=== PATIENT | male | born 1935 | race Caucasian/White ===

== ENCOUNTER 2017-11-11 12:16 | Inpatient (IN) | payer OTHER, MEDICARE ==
[~2017-11-11] VITALS: Ht 177.8 cm; Wt 86.7 kg
[~2017-11-11 12:16] MED LIST: ACET325T14 PO; ACET650S12 PR; ALBU1.25 NEB; AMIO200T42 PO; ASPI-496 PO; ATOR10TA9 PO; AZIT500T5 PO; BISA10SU2 PR; CARV6.2512 PO; CEFD300C37 PO; CLOP75TA PO; CYCL-259 PO; DIAZ5TAB4 PO; DOCU100C33 PO; EZET10TA18 PO; FURO80TA77 PO; HYDR12.53 PO; IMAT100T PO; INSU100C5 SQ-INSULIN; LACT10SO28 PO; LISI-420 PO; LISI5TAB7 PO; LISINOPRIL PO; METF500T9 PO; METO50TA82 PO; OMEG1CAP6 PO; ONDA4TAB10 PO; OXYC-307 PO; OXYC1TAB7 PO; OXYC5CAP2 PO; PANT40TA3 PO; POLY17PO5 PO; POTA20TA89 PO; PT WILL BRING LIST; SULF-169 PO; WARF2TAB99 PO; ZOLP10TA PO
[2017-11-11] MEDS ORDERED: SODIUM CHLORIDE FLUSH 10ML SYR IVF ONE (12:30)
[2017-11-11 12:54] LABS: MEAN CORPUSCULAR HEMOGLOBIN 29.7 pg (27.5-34.5); MEAN CORPUSCULAR HGB CONC 32.9 g/dL (33.2-36.2); MEAN CORPUSCULAR VOLUME 90.2 fL (81-97); MEAN PLATELET VOLUME 8.4 fL (7.4-10.4); PLATELET COUNT 394 x10^3/uL (130-400); RED BLOOD COUNT 5.55 x10^6/uL (4.38-5.82); RED CELL DISTRIBUTION WIDTH 15.2 % (9.4-14.8)
[2017-11-11 13:03] LABS: INTERNATIONAL NORMALIZED RATIO 1.09 (0.93-1.1); PROTHROMBIN TIME 11.2 Seconds (9.6-11.5)
[2017-11-11 13:07] LABS: ALANINE AMINOTRANSFERASE 32 U/L (12-78); ANION GAP 9 mmol/L (5-15); CHLORIDE 107 mmol/L (98-107); CREATININE 1.16 mg/dL (0.7-1.3)
[2017-11-11 13:10] LABS: MD YES
[2017-11-11 13:11] LABS: ALKALINE PHOSPHATASE 103 U/L (45-117); BILIRUBIN,TOTAL 0.8 mg/dL (0.2-1.0); TOTAL PROTEIN 7.5 g/dL (6.4-8.2); TROPONIN I 0.097 ng/mL (0.000-0.045)
[2017-11-11 13:12] LABS: LYMPH#(MANUAL) 2.63 x10^3/uL (1-3.4); LYMPHS% (MANUAL) 15 % (22-44); REACTIVE LYMPHS # (MANUAL) 0.35 x10^3/uL (0-0); REACTIVE LYMPHS % (MANUAL) 2 % (0-0); SEG#(MANUAL) 12.95 x10^3/uL (1.8-6.8); SEGS% (MANUAL) 74 % (42-75)
[2017-11-11 13:13] LABS: BASOS#(MANUAL) 0.18 x10^3/uL (0-0.1); BASOS% (MANUAL) 1 % (0-1); MONOS% (MANUAL) 8 % (2-9)
[2017-11-11 13:14] LABS: <PLATELET ESTIMATE> ADEQUATE; ANISOCYTOSIS 1+; LARGE PLATELETS 1+
[2017-11-11] MEDS ORDERED: SODIUM CHLORIDE FLUSH 10ML SYR IVF PRN (14:30)
[2017-11-11] MEDS ORDERED: OXYC10TA47 PO (14:44)
[2017-11-11 16:00] VITALS: BP 161/83
[2017-11-11] MEDS ORDERED: LABETALOL 5MG/ML, 20ML IVPush ONE (16:30)
[2017-11-11] MEDS ORDERED: ACETAMINOPHEN 325 MG TABLET PO PRN (17:00)
[2017-11-11] MEDS ORDERED: LABETALOL 5MG/ML, 20ML IVPush PRN (17:00)
[2017-11-11 18:00] LABS: FREE T4 (FREE THYROXINE) 1.25 ng/dL (0.76-1.46); TROPONIN I 0.095 ng/mL (0.000-0.045)
[2017-11-11] MEDS ORDERED: POLYETHYLENE GLYCOL 17 GM PACKET PO PRN (18:00)
[2017-11-11 18:03] VITALS: BP 144/68
[2017-11-11 18:06] LABS: THYROID STIMULATING HORMONE 0.103 mIU/L (0.358-3.740)
[2017-11-11] MEDS: SODIUM CHLORIDE 0.9% 1,000 ML IV SCH (18:10)
[2017-11-11 18:41] VITALS: BP 158/67
[2017-11-11] MEDS: METOPROLOL TARTRATE 50 MG TABLET PO SCH (19:12)
[2017-11-11 20:35] LABS: MICROSCOPIC AUTO
[2017-11-11 20:37] LABS: CULTURE INDICATED? NO
[2017-11-11] MEDS: ATORVASTATIN 10 MG TABLET PO SCH (21:31)
[2017-11-11 23:28] LABS: TROPONIN I 0.093 ng/mL (0.000-0.045)
[2017-11-12 00:58] VITALS: BP 151/85
[2017-11-12] MEDS: SUCRALFATE 1 GM TABLET PO PRN ×2 (01:05→14:11)
[2017-11-12] MEDS ORDERED: OXYcodone IR 5MG TABLET ONE (04:43)
[2017-11-12] MEDS: OXYcodone IR 5MG TABLET PO PRN ×3 (04:45→20:11)
[2017-11-12] MEDS: SODIUM CHLORIDE 0.9% 1,000 ML IV SCH (04:48)
[2017-11-12 05:34] LABS: MEAN CORPUSCULAR HEMOGLOBIN 29.6 pg (27.5-34.5); MEAN CORPUSCULAR HGB CONC 32.7 g/dL (33.2-36.2); MEAN CORPUSCULAR VOLUME 90.6 fL (81-97); MEAN PLATELET VOLUME 8.7 fL (7.4-10.4); PLATELET COUNT 369 x10^3/uL (130-400); RED BLOOD COUNT 5.29 x10^6/uL (4.38-5.82)
[2017-11-12 05:35] LABS: ANION GAP 8 mmol/L (5-15); CALCIUM 8.4 mg/dL (8.5-10.1); CHLORIDE 110 mmol/L (98-107); CREATININE 1.08 mg/dL (0.7-1.3)
[2017-11-12 06:09] VITALS: BP 142/83
[2017-11-12] MEDS: METOPROLOL TARTRATE 50 MG TABLET PO SCH ×2 (06:10→17:27)
[2017-11-12 06:17] LABS: BASOPHILS # (AUTO) 0.36 x10^3/uL (0-0.1); BASOPHILS % (AUTO) 3 % (0-1); EOSINOPHILS # (AUTO) 0.08 x10^3/uL (0-0.4); EOSINOPHILS % (AUTO) 1 % (1-7); LYMPHOCYTES # (AUTO) 2.99 x10^3/uL (1-3.4); LYMPHOCYTES % (AUTO) 21 % (22-44); MD SCAN; MONOCYTES # (AUTO) 1.61 x10^3/uL (0.2-0.8); MONOCYTES % (AUTO) 11 % (2-9); NEUTROPHILS # (AUTO) 9.03 x10^3/uL (1.8-6.8); NEUTROPHILS % (AUTO) 64 % (42-75)
[2017-11-12 06:32] VITALS: BP 162/78
[2017-11-12] MEDS: ASPIRIN 81 MG TABLET EC PO SCH (08:48)
[2017-11-12] MEDS ORDERED: TEMAZEPAM 30 MG CAPSULE PO PRN (12:30)
[2017-11-12 13:16] VITALS: BP 147/87
[2017-11-12] MEDS: PANTOPROZOLE 40MG TABLET PO SCH ×2 (15:57→21:07)
[2017-11-12 21:00] VITALS: BP 152/87
[2017-11-12] MEDS: ATORVASTATIN 10 MG TABLET PO SCH (21:06)
[2017-11-13] MEDS: OXYcodone IR 5MG TABLET PO PRN ×4 (00:09→14:18)
[2017-11-13 01:51] VITALS: BP 154/80
[2017-11-13 05:11] LABS: MEAN CORPUSCULAR HEMOGLOBIN 29.4 pg (27.5-34.5); MEAN CORPUSCULAR HGB CONC 32.8 g/dL (33.2-36.2); MEAN CORPUSCULAR VOLUME 89.7 fL (81-97); MEAN PLATELET VOLUME 8.7 fL (7.4-10.4); PLATELET COUNT 363 x10^3/uL (130-400); RED BLOOD COUNT 5.08 x10^6/uL (4.38-5.82)
[2017-11-13 05:17] LABS: CHLORIDE 107 mmol/L (98-107)
[2017-11-13 05:31] LABS: ALANINE AMINOTRANSFERASE 37 U/L (12-78); ALBUMIN 2.9 g/dL (3.4-5.0); ALKALINE PHOSPHATASE 87 U/L (45-117); ANION GAP 7 mmol/L (5-15); BILIRUBIN,TOTAL 0.8 mg/dL (0.2-1.0); CREATININE 1.05 mg/dL (0.7-1.3); TOTAL PROTEIN 5.8 g/dL (6.4-8.2)
[2017-11-13 05:49] LABS: MD YES
[2017-11-13 06:03] LABS: HEMOGLOBIN A1C 6.6 % (4.2-6.3)
[2017-11-13 06:19] LABS: <PLATELET ESTIMATE> ADEQUATE; <PLT MORPHOLOGY> NORMAL PLT MORPH; ANISOCYTOSIS 1+; LYMPH#(MANUAL) 6.84 x10^3/uL (1-3.4); LYMPHS% (MANUAL) 36 % (22-44); MONOS#(MANUAL) 1.52 x10^3/uL (0.3-2.7); MONOS% (MANUAL) 8 % (2-9); SEG#(MANUAL) 10.64 x10^3/uL (1.8-6.8); SEGS% (MANUAL) 56 % (42-75)
[2017-11-13 07:40] VITALS: BP 156/91
[2017-11-13] MEDS: SUCRALFATE 1 GM TABLET PO PRN (08:19)
[2017-11-13] MEDS: PANTOPROZOLE 40MG TABLET PO SCH (08:19)
[2017-11-13] MEDS: ASPIRIN 81 MG TABLET EC PO SCH (08:19)
[2017-11-13] MEDS: METOPROLOL TARTRATE 50 MG TABLET PO SCH (08:19)
[2017-11-13 12:45] VITALS: BP 119/70
== END 2017-11-13 17:12 | disposition home or self-care (01) | DRG 70 ==
LOC: ED 14:22 → 5SO 14:23 → ED 16:01
PROVIDERS: ADMIT Hospitalist; ATTEND Hospitalist
DX: G93.41 Metabolic encephalopathy (principal); I50.41 Acute combined systolic (congestive) and diastolic (congestive) heart failure; I24.8 Other forms of acute ischemic heart disease; I48.0 Paroxysmal atrial fibrillation; E78.5 Hyperlipidemia, unspecified; E11.9 Type 2 diabetes mellitus without complications; D72.829 Elevated white blood cell count, unspecified; F41.9 Anxiety disorder, unspecified; G47.00 Insomnia, unspecified; I35.8 Other nonrheumatic aortic valve disorders; I11.0 Hypertensive heart disease with heart failure; I25.10 Atherosclerotic heart disease of native coronary artery without angina pectoris; I25.2 Old myocardial infarction; M48.00 Spinal stenosis, site unspecified; K21.9 Gastro-esophageal reflux disease without esophagitis; Z83.3 Family history of diabetes mellitus; Z85.51 Personal history of malignant neoplasm of bladder; Z85.6 Personal history of leukemia; Z95.1 Presence of aortocoronary bypass graft; Z87.891 Personal history of nicotine dependence; Z86.711 Personal history of pulmonary embolism; Z85.46 Personal history of malignant neoplasm of prostate; T14.8XXA Other injury of unspecified body region, initial encounter; X58.XXXA Exposure to other specified factors, initial encounter; Y93.89 Activity, other specified; Y92.89 Other specified places as the place of occurrence of the external cause; Y99.8 Other external cause status; R23.4 Changes in skin texture
CPT/HCPCS: 36415; 70450; 71045; 71250; 80048; 80053; 81001; 83036; 83735; 83880; 84100; 84439; 84443; 84484; 85025; 85379; 85610; 85730; 87040; 93005; 99285; J7030

== ENCOUNTER 2017-11-18 09:15 | Emergency (ER) | payer OTHER, MEDICARE ==
[~2017-11-18] VITALS: Ht 177.8 cm; Wt 83.0 kg
[~2017-11-18 09:15] MED LIST changes: +OXYC10TA47 PO
[2017-11-18] MEDS ORDERED: SODIUM CHLORIDE FLUSH 10ML SYR IVF ONE (09:30)
[2017-11-18] MEDS ORDERED: LORazepam 2 MG/ML, 1ML IVPush ONE (09:30)
[2017-11-18] MEDS ORDERED: LORazepam 2 MG/ML, 1ML ONE (09:33)
[2017-11-18 09:38] LABS: MEAN CORPUSCULAR HEMOGLOBIN 28.4 pg (27.5-34.5); MEAN CORPUSCULAR HGB CONC 31.9 g/dL (33.2-36.2); MEAN CORPUSCULAR VOLUME 89.1 fL (81-97); MEAN PLATELET VOLUME 8.4 fL (7.4-10.4); PLATELET COUNT 474 x10^3/uL (130-400); RED BLOOD COUNT 6.01 x10^6/uL (4.38-5.82)
[2017-11-18] MEDS ORDERED: DULO30CA2 PO (09:40)
[2017-11-18 09:51] LABS: ANION GAP 6 mmol/L (5-15); CALCIUM 8.6 mg/dL (8.5-10.1); CHLORIDE 102 mmol/L (98-107)
[2017-11-18 09:53] LABS: MD YES
[2017-11-18 09:54] LABS: BASOS#(MANUAL) 0.56 x10^3/uL (0-0.1); BASOS% (MANUAL) 3 % (0-1); EOS#(MANUAL) 0.19 x10^3/uL (0.0-0.4); EOS% (MANUAL) 1 % (1-7); LYMPH#(MANUAL) 1.87 x10^3/uL (1-3.4); LYMPHS% (MANUAL) 10 % (22-44); MONOS#(MANUAL) 0.94 x10^3/uL (0.3-2.7); MONOS% (MANUAL) 5 % (2-9); SEG#(MANUAL) 15.15 x10^3/uL (1.8-6.8); SEGS% (MANUAL) 81 % (42-75)
[2017-11-18 09:55] LABS: ANISOCYTOSIS 1+
[2017-11-18 09:56] LABS: <PLATELET ESTIMATE> INCREASED; <PLT MORPHOLOGY> NORMAL PLT MORPH
[2017-11-18 10:01] LABS: ALANINE AMINOTRANSFERASE 39 U/L (12-78); ALKALINE PHOSPHATASE 110 U/L (45-117); BILIRUBIN,TOTAL 0.8 mg/dL (0.2-1.0); CREATINE KINASE, TOTAL 102 U/L (39-308); CREATININE 1.13 mg/dL (0.7-1.3); T4 (THYROXINE) 11.2 mcg/dL (4.5-12.1); THYROID STIMULATING HORMONE 0.461 mIU/L (0.358-3.740); TOTAL PROTEIN 7.4 g/dL (6.4-8.2)
[2017-11-18 10:54] VITALS: BP 176/87
== END 2017-11-18 11:23 | disposition home or self-care (01) ==
LOC: ED 09:43
DX: T50.995A Adverse effect of other drugs, medicaments and biological substances, initial encounter (principal); E11.9 Type 2 diabetes mellitus without complications; I48.91 Unspecified atrial fibrillation; I11.0 Hypertensive heart disease with heart failure; I50.9 Heart failure, unspecified; Z87.891 Personal history of nicotine dependence
CPT/HCPCS: 36415; 80053; 82550; 83735; 84100; 84436; 84443; 84481; 85025; 96374; 99284; J2060

== ENCOUNTER 2018-03-02 13:50 | Inpatient (IN) | payer MEDICARE, OTHER ==
[~2018-03-02] VITALS: Ht 177.8 cm; Wt 83.1 kg
[~2018-03-02 13:50] MED LIST changes: +DULO30CA2 PO
[2018-03-02] MEDS ORDERED: SODIUM CHLORIDE 0.9% 1,000 ML IV ONE (14:06)
[2018-03-02] MEDS ORDERED: THIAMINE 100MG TABLET PO ONE (14:30)
[2018-03-02] MEDS ORDERED: SODIUM CHLORIDE FLUSH 10ML SYR IVF ONE (14:30)
[2018-03-02 14:35] LABS: ALANINE AMINOTRANSFERASE 38 U/L (12-78); ALBUMIN 3.5 g/dL (3.4-5.0); ANION GAP 16 mmol/L (5-15); CALCIUM 8.2 mg/dL (8.5-10.1); CHLORIDE 105 mmol/L (98-107); CREATININE 1.14 mg/dL (0.7-1.3)
[2018-03-02 14:37] LABS: ALKALINE PHOSPHATASE 127 U/L (45-117); BILIRUBIN,TOTAL 0.6 mg/dL (0.2-1.0); TOTAL PROTEIN 7.4 g/dL (6.4-8.2)
[2018-03-02 14:45] LABS: INTERNATIONAL NORMALIZED RATIO 1.03 (0.93-1.1); PROTHROMBIN TIME 10.7 Seconds (9.6-11.5)
[2018-03-02] MEDS ORDERED: LORazepam 2 MG/ML, 1ML ONE ×2 (14:57→16:53)
[2018-03-02] MEDS ORDERED: LORazepam 2 MG/ML, 1ML IVPush ONE ×2 (15:00→16:30)
[2018-03-02] MEDS ORDERED: THIAMINE 100MG TABLET ONE (15:00)
[2018-03-02 15:05] LABS: CREATINE KINASE, TOTAL 1810 U/L (39-308)
[2018-03-02 15:19] LABS: MD YES; MEAN CORPUSCULAR HEMOGLOBIN 29.2 pg (27.5-34.5); MEAN CORPUSCULAR HGB CONC 32.8 g/dL (33.2-36.2); MEAN CORPUSCULAR VOLUME 89.2 fL (81-97); MEAN PLATELET VOLUME 8.9 fL (7.4-10.4); PLATELET COUNT 543 x10^3/uL (130-400); RED BLOOD COUNT 5.62 x10^6/uL (4.38-5.82); RED CELL DISTRIBUTION WIDTH 16.3 % (9.4-14.8)
[2018-03-02] MEDS ORDERED: OXYC10TA6 PO (15:21)
[2018-03-02 15:22] LABS: BAND#(MANUAL) 0.37 x10^3/uL; BANDS%(MANUAL) 1 % (0-7); BASOS#(MANUAL) 0.74 x10^3/uL (0-0.1); BASOS% (MANUAL) 2 % (0-1); LYMPH#(MANUAL) 2.21 x10^3/uL (1-3.4); LYMPHS% (MANUAL) 6 % (22-44); MONOS#(MANUAL) 0.74 x10^3/uL (0.3-2.7); MONOS% (MANUAL) 2 % (2-9); SEG#(MANUAL) 32.84 x10^3/uL (1.8-6.8); SEGS% (MANUAL) 89 % (42-75)
[2018-03-02 15:23] LABS: <PLATELET ESTIMATE> INCREASED; ANISOCYTOSIS 1+; LARGE PLATELETS 1+; POLYCHROMASIA 1+
[2018-03-02] MEDS ORDERED: SODIUM CHLORIDE 0.9% 1,000ML IVBOLUS ONE (16:30)
[2018-03-02] MEDS ORDERED: CEFTRIAXONE 1,000 MG in SODIUM CHLORIDE 0.9% 50 ML IV ONE (16:30)
[2018-03-02 16:33] LABS: MICROSCOPIC INDICATED
[2018-03-02 16:47] LABS: CULTURE INDICATED? NO
[2018-03-02] MEDS ORDERED: CEFTRIAXONE PMX 1GM/50ML 50 ML ONE (16:53)
[2018-03-02] MEDS ORDERED: LABETALOL 5MG/ML, 20ML IVPush PRN (17:30)
[2018-03-02] MEDS ORDERED: DOCUSATE 100 MG CAPSULE PO PRN (17:30)
[2018-03-02] MEDS ORDERED: BISACODYL 10 MG SUPP PR PRN (17:30)
[2018-03-02] MEDS ORDERED: ONDANSETRON 2MG/ML, 2ML IVPush PRN (17:30)
[2018-03-02] MEDS ORDERED: ACETAMINOPHEN 325 MG TABLET PO PRN (17:30)
[2018-03-02] MEDS ORDERED: POLYETHYLENE GLYCOL 17 GM PACKET PO PRN ×2 (17:30)
[2018-03-02] MEDS ORDERED: METOPROLOL TARTRATE 50 MG TABLET PO SCH (18:00)
[2018-03-02 18:58] VITALS: BP 165/88
[2018-03-02] MEDS: ENOXAPARIN 40 MG/0.4 ML SQ SCH (20:54)
[2018-03-02] MEDS: SODIUM CHLORIDE 0.9% 1,000 ML IV SCH (20:54)
[2018-03-02] MEDS: DOCUSATE 100 MG CAPSULE PO SCH (20:56)
[2018-03-02] MEDS: metFORMIN XR 500 MG TAB.ER.24H PO SCH (20:57)
[2018-03-02] MEDS: KETOROLAC 30 MG/1 ML IV PRN (21:08)
[2018-03-02] MEDS: LORazepam 2 MG/ML, 1ML IVPush PRN (22:07)
[2018-03-03] MEDS: LORazepam 2 MG/ML, 1ML IVPush PRN ×8 (01:36→22:30)
[2018-03-03 01:45] VITALS: BP 146/85
[2018-03-03 03:32] VITALS: BP 152/65
[2018-03-03 04:43] VITALS: BP 155/85
[2018-03-03] MEDS: KETOROLAC 30 MG/1 ML IV PRN ×3 (04:49→21:10)
[2018-03-03 05:26] LABS: MEAN CORPUSCULAR HEMOGLOBIN 29.5 pg (27.5-34.5); MEAN CORPUSCULAR HGB CONC 33.1 g/dL (33.2-36.2); MEAN PLATELET VOLUME 9.2 fL (7.4-10.4); PLATELET COUNT 523 x10^3/uL (130-400); RED BLOOD COUNT 5.13 x10^6/uL (4.38-5.82); RED CELL DISTRIBUTION WIDTH 16.3 % (9.4-14.8)
[2018-03-03 05:29] LABS: ALANINE AMINOTRANSFERASE 36 U/L (12-78); ALBUMIN 3.1 g/dL (3.4-5.0); ANION GAP 9 mmol/L (5-15); CALCIUM 7.5 mg/dL (8.5-10.1); CHLORIDE 110 mmol/L (98-107); CREATININE 1.12 mg/dL (0.7-1.3)
[2018-03-03 05:46] LABS: ALKALINE PHOSPHATASE 108 U/L (45-117); CREATINE KINASE, TOTAL 1459 U/L (39-308); TOTAL PROTEIN 6.3 g/dL (6.4-8.2)
[2018-03-03] MEDS: SODIUM CHLORIDE 0.9% 1,000 ML IV SCH ×2 (05:51→17:24)
[2018-03-03 06:02] LABS: MD YES
[2018-03-03 06:04] LABS: BASOS#(MANUAL) 0.58 x10^3/uL (0-0.1); BASOS% (MANUAL) 2 % (0-1); LYMPH#(MANUAL) 1.16 x10^3/uL (1-3.4); LYMPHS% (MANUAL) 4 % (22-44); MONOS#(MANUAL) 1.75 x10^3/uL (0.3-2.7); MONOS% (MANUAL) 6 % (2-9); SEG#(MANUAL) 25.61 x10^3/uL (1.8-6.8); SEGS% (MANUAL) 88 % (42-75)
[2018-03-03 06:05] LABS: <PLATELET ESTIMATE> INCREASED; <PLT MORPHOLOGY> NORMAL PLT MORPH; ANISOCYTOSIS 1+; POLYCHROMASIA 1+
[2018-03-03 08:26] VITALS: BP 146/70
[2018-03-03] MEDS ORDERED: DULOXETINE 30 MG CAPSULE.DR PO SCH (09:00)
[2018-03-03] MEDS: metFORMIN XR 500 MG TAB.ER.24H PO SCH ×2 (10:02→20:00)
[2018-03-03] MEDS: ASPIRIN 81 MG TABLET EC PO SCH (10:02)
[2018-03-03] MEDS: DOCUSATE 100 MG CAPSULE PO SCH ×2 (10:03→20:00)
[2018-03-03 12:14] VITALS: BP 155/85
[2018-03-03] MEDS ORDERED: TEMPLATE NON-FORMULARY MED. (Oxycodone Hcl** 10 MG) PO SCH (16:00)
[2018-03-03] MEDS: ENOXAPARIN 40 MG/0.4 ML SQ SCH (17:25)
[2018-03-03 19:02] VITALS: BP 131/81
[2018-03-04] MEDS: LORazepam 2 MG/ML, 1ML IVPush PRN ×6 (01:56→21:32)
[2018-03-04 02:13] VITALS: BP 151/88
[2018-03-04] MEDS: KETOROLAC 30 MG/1 ML IV PRN ×2 (03:09→09:35)
[2018-03-04] MEDS: SODIUM CHLORIDE 0.9% 1,000 ML IV SCH (03:11)
[2018-03-04 04:50] LABS: MEAN CORPUSCULAR HEMOGLOBIN 29.1 pg (27.5-34.5); MEAN CORPUSCULAR HGB CONC 32.6 g/dL (33.2-36.2); MEAN CORPUSCULAR VOLUME 89.2 fL (81-97); MEAN PLATELET VOLUME 9.4 fL (7.4-10.4); PLATELET COUNT 447 x10^3/uL (130-400); RED BLOOD COUNT 4.69 x10^6/uL (4.38-5.82)
[2018-03-04 05:01] LABS: CHLORIDE 113 mmol/L (98-107)
[2018-03-04 05:09] LABS: ALANINE AMINOTRANSFERASE 32 U/L (12-78); ALBUMIN 2.6 g/dL (3.4-5.0); ALKALINE PHOSPHATASE 83 U/L (45-117); ANION GAP 8 mmol/L (5-15); BILIRUBIN,TOTAL 0.6 mg/dL (0.2-1.0); CALCIUM 7.8 mg/dL (8.5-10.1); CREATINE KINASE, TOTAL 535 U/L (39-308); CREATININE 0.88 mg/dL (0.7-1.3); TOTAL PROTEIN 5.7 g/dL (6.4-8.2)
[2018-03-04 05:42] LABS: MD YES
[2018-03-04 05:43] LABS: BAND#(MANUAL) 0.28 x10^3/uL; BANDS%(MANUAL) 1 % (0-7); BASOS#(MANUAL) 0.56 x10^3/uL (0-0.1); BASOS% (MANUAL) 2 % (0-1); EOS#(MANUAL) 0.28 x10^3/uL (0.0-0.4); EOS% (MANUAL) 1 % (1-7); LYMPH#(MANUAL) 3.36 x10^3/uL (1-3.4); LYMPHS% (MANUAL) 12 % (22-44); MONOS% (MANUAL) 5 % (2-9); SEG#(MANUAL) 22.12 x10^3/uL (1.8-6.8); SEGS% (MANUAL) 79 % (42-75)
[2018-03-04 05:44] LABS: ANISOCYTOSIS 1+
[2018-03-04 05:45] LABS: POLYCHROMASIA 1+
[2018-03-04 05:47] LABS: <PLATELET ESTIMATE> INCREASED; LARGE PLATELETS 1+
[2018-03-04] MEDS: metFORMIN XR 500 MG TAB.ER.24H PO SCH ×2 (07:29→19:33)
[2018-03-04] MEDS: DOCUSATE 100 MG CAPSULE PO SCH ×2 (07:29→19:32)
[2018-03-04] MEDS: ASPIRIN 81 MG TABLET EC PO SCH (07:29)
[2018-03-04] MEDS: IMATINIB 100 MG TABLET PO SCH (07:29)
[2018-03-04] MEDS ORDERED: TPN PER PHARMACY MC PRN (08:00)
[2018-03-04] MEDS ORDERED: SODIUM CHLORIDE 0.9% 1,000 ML IV SCH ×2 (08:00→10:30)
[2018-03-04 08:15] VITALS: BP 165/81
[2018-03-04] MEDS: METRONIDAZOLE PMX 500MG/100ML 100 ML IV SCH ×2 (08:18→16:40)
[2018-03-04] MEDS: CEFTRIAXONE 1,000 MG in SODIUM CHLORIDE 0.9% 50 ML IV SCH (09:35)
[2018-03-04] MEDS: morphine SULFATE 10 MG/ML, 1ML IVPush PRN ×2 (10:20→23:00)
[2018-03-04] MEDS: INSULIN LISPRO 100 UNITS/ML, PEN SQ-INSULIN SCH ×3 (11:00→21:53)
[2018-03-04 13:08] VITALS: BP 155/78
[2018-03-04] MEDS: ENOXAPARIN 40 MG/0.4 ML SQ SCH (16:43)
[2018-03-04] MEDS ORDERED: SMOF TPN IV SCH (17:00)
[2018-03-04] MEDS ORDERED: DEXTROSE 50%, 50ML SYRINGE IVPush PRN (17:00)
[2018-03-04] MEDS ORDERED: AMINO ACID 10% IV SCH (17:00)
[2018-03-04] MEDS ORDERED: [UNRECOGNIZED DRUG - OTHER] IV SCH (17:00)
[2018-03-04] MEDS ORDERED: FAT EMUL IV SCH (17:00)
[2018-03-04] MEDS ORDERED: DEXTROSE 10% 500 ML IV PRN (17:00)
[2018-03-04] MEDS ORDERED: DEXTROSE 70% IV SCH (17:00)
[2018-03-04 18:59] VITALS: BP_SYST 169; BP_SYST 180; BP_DIAS 81; BP_DIAS 91
[2018-03-04] MEDS: FILTER, DISP 1.2 MICRON FOR TPN/PVN IV PRN (19:22)
[2018-03-05] MEDS: LORazepam 2 MG/ML, 1ML IVPush PRN ×5 (00:25→11:45)
[2018-03-05] MEDS: METRONIDAZOLE PMX 500MG/100ML 100 ML IV SCH ×3 (00:25→17:04)
[2018-03-05 01:23] VITALS: BP 164/63
[2018-03-05 04:33] LABS: MEAN CORPUSCULAR HEMOGLOBIN 29.2 pg (27.5-34.5); MEAN CORPUSCULAR HGB CONC 32.7 g/dL (33.2-36.2); MEAN CORPUSCULAR VOLUME 89.3 fL (81-97); MEAN PLATELET VOLUME 8.8 fL (7.4-10.4); PLATELET COUNT 408 x10^3/uL (130-400); RED BLOOD COUNT 4.99 x10^6/uL (4.38-5.82); RED CELL DISTRIBUTION WIDTH 16.2 % (9.4-14.8)
[2018-03-05 04:47] LABS: ANION GAP 9 mmol/L (5-15); CALCIUM 8.3 mg/dL (8.5-10.1); CHLORIDE 108 mmol/L (98-107); CREATININE 0.87 mg/dL (0.7-1.3)
[2018-03-05 04:54] LABS: ALANINE AMINOTRANSFERASE 37 U/L (12-78); ALBUMIN 2.9 g/dL (3.4-5.0); ALKALINE PHOSPHATASE 94 U/L (45-117); BILIRUBIN,TOTAL 0.6 mg/dL (0.2-1.0); CREATINE KINASE, TOTAL 329 U/L (39-308); PREALBUMIN 13.8 mg/dL (20.0-40.0); TOTAL PROTEIN 6.5 g/dL (6.4-8.2); TRIGLYCERIDES 119 mg/dL (50-200)
[2018-03-05 04:58] LABS: MD YES
[2018-03-05 05:00] LABS: ANISOCYTOSIS 1+; BAND#(MANUAL) 0.86 x10^3/uL; BANDS%(MANUAL) 3 % (0-7); BASOS#(MANUAL) 0.29 x10^3/uL (0-0.1); BASOS% (MANUAL) 1 % (0-1); LYMPHS% (MANUAL) 17 % (22-44); MONOS#(MANUAL) 1.15 x10^3/uL (0.3-2.7); MONOS% (MANUAL) 4 % (2-9); POLYCHROMASIA 1+; SEGS% (MANUAL) 75 % (42-75)
[2018-03-05 05:01] LABS: <PLATELET ESTIMATE> INCREASED; <PLT MORPHOLOGY> NORMAL PLT MORPH
[2018-03-05 07:52] VITALS: BP 163/91
[2018-03-05] MEDS: ASPIRIN 81 MG TABLET EC PO SCH (09:06)
[2018-03-05] MEDS: DOCUSATE 100 MG CAPSULE PO SCH ×2 (09:06→21:00)
[2018-03-05] MEDS: metFORMIN XR 500 MG TAB.ER.24H PO SCH ×2 (09:06→21:00)
[2018-03-05] MEDS: IMATINIB 100 MG TABLET PO SCH (09:06)
[2018-03-05] MEDS: INSULIN LISPRO 100 UNITS/ML, PEN SQ-INSULIN SCH ×4 (09:11→21:00)
[2018-03-05] MEDS: CEFTRIAXONE 1,000 MG in SODIUM CHLORIDE 0.9% 50 ML IV SCH (10:11)
[2018-03-05] MEDS ORDERED: POTASSIUM PHOSPHATE 22 MEQ in SODIUM CHLORIDE 0.9% 500 ML IV ONE (10:30)
[2018-03-05] MEDS: KETOROLAC 30 MG/1 ML IV PRN (12:37)
[2018-03-05] MEDS: morphine SULFATE 10 MG/ML, 1ML IVPush PRN ×2 (14:05→17:05)
[2018-03-05 14:35] VITALS: BP 166/84
[2018-03-05] MEDS ORDERED: SMOF TPN IV SCH (17:00)
[2018-03-05] MEDS ORDERED: FAT EMUL IV SCH (17:00)
[2018-03-05] MEDS ORDERED: DEXTROSE 70% IV SCH (17:00)
[2018-03-05] MEDS ORDERED: AMINO ACID 10% IV SCH (17:00)
[2018-03-05] MEDS ORDERED: [UNRECOGNIZED DRUG - OTHER] IV SCH (17:00)
[2018-03-05] MEDS: ENOXAPARIN 40 MG/0.4 ML SQ SCH (17:17)
[2018-03-05 18:42] VITALS: BP 164/80
[2018-03-06] MEDS: KETOROLAC 30 MG/1 ML IV PRN ×3 (00:20→11:09)
[2018-03-06] MEDS: METRONIDAZOLE PMX 500MG/100ML 100 ML IV SCH ×4 (00:20→16:29)
[2018-03-06 02:00] VITALS: BP 146/76
[2018-03-06 05:14] LABS: ALANINE AMINOTRANSFERASE 30 U/L (12-78); ALBUMIN 2.5 g/dL (3.4-5.0); ANION GAP 7 mmol/L (5-15); CALCIUM 7.8 mg/dL (8.5-10.1); CHLORIDE 105 mmol/L (98-107)
[2018-03-06 05:16] LABS: ALKALINE PHOSPHATASE 79 U/L (45-117); BILIRUBIN,TOTAL 0.5 mg/dL (0.2-1.0); CREATININE 0.88 mg/dL (0.7-1.3); TOTAL PROTEIN 5.7 g/dL (6.4-8.2)
[2018-03-06 06:05] LABS: MEAN CORPUSCULAR HEMOGLOBIN 29.2 pg (27.5-34.5); MEAN CORPUSCULAR HGB CONC 32.5 g/dL (33.2-36.2); MEAN CORPUSCULAR VOLUME 89.8 fL (81-97); MEAN PLATELET VOLUME 9.6 fL (7.4-10.4); PLATELET COUNT 382 x10^3/uL (130-400); RED BLOOD COUNT 4.81 x10^6/uL (4.38-5.82); RED CELL DISTRIBUTION WIDTH 15.6 % (9.4-14.8)
[2018-03-06 06:35] LABS: MD YES
[2018-03-06 06:37] LABS: BAND#(MANUAL) 0.23 x10^3/uL; BANDS%(MANUAL) 1 % (0-7); BASOS#(MANUAL) 0.23 x10^3/uL (0-0.1); BASOS% (MANUAL) 1 % (0-1); EOS#(MANUAL) 1.87 x10^3/uL (0.0-0.4); EOS% (MANUAL) 8 % (1-7); LYMPH#(MANUAL) 3.28 x10^3/uL (1-3.4); LYMPHS% (MANUAL) 14 % (22-44); MONOS#(MANUAL) 1.64 x10^3/uL (0.3-2.7); MONOS% (MANUAL) 7 % (2-9); MYELOCYTES# (MANUAL) 0.23 x10^3/uL (0-0); MYELOCYTES% (MANUAL) 1 % (0-0); SEG#(MANUAL) 15.91 x10^3/uL (1.8-6.8); SEGS% (MANUAL) 68 % (42-75)
[2018-03-06 06:38] LABS: <PLATELET ESTIMATE> ADEQUATE; ANISOCYTOSIS 1+; POLYCHROMASIA 1+
[2018-03-06 06:39] LABS: LARGE PLATELETS 1+
[2018-03-06 08:33] VITALS: BP 151/81
[2018-03-06] MEDS: INSULIN LISPRO 100 UNITS/ML, PEN SQ-INSULIN SCH ×4 (09:09→21:00)
[2018-03-06] MEDS: DOCUSATE 100 MG CAPSULE PO SCH ×2 (12:17→21:00)
[2018-03-06] MEDS: metFORMIN XR 500 MG TAB.ER.24H PO SCH ×2 (12:17→21:00)
[2018-03-06] MEDS: ASPIRIN 81 MG TABLET EC PO SCH (12:17)
[2018-03-06] MEDS: CEFTRIAXONE 1,000 MG in SODIUM CHLORIDE 0.9% 50 ML IV SCH (12:17)
[2018-03-06] MEDS: OXYcodone IR 5MG TABLET PO PRN ×2 (12:17→21:00)
[2018-03-06 13:18] VITALS: BP 154/74
[2018-03-06] MEDS: IMATINIB 100 MG TABLET PO SCH (13:55)
[2018-03-06] MEDS: LORazepam 2 MG/ML, 1ML IVPush PRN ×2 (16:29→20:59)
[2018-03-06] MEDS ORDERED: [UNRECOGNIZED DRUG - OTHER] IV SCH (17:00)
[2018-03-06] MEDS ORDERED: AMINO ACID 10% IV SCH (17:00)
[2018-03-06] MEDS ORDERED: DEXTROSE 70% IV SCH (17:00)
[2018-03-06] MEDS ORDERED: SMOF TPN IV SCH (17:00)
[2018-03-06] MEDS ORDERED: FAT EMUL IV SCH (17:00)
[2018-03-06] MEDS: ENOXAPARIN 40 MG/0.4 ML SQ SCH (17:54)
[2018-03-06] MEDS: FILTER, DISP 1.2 MICRON FOR TPN/PVN IV PRN (18:38)
[2018-03-06 19:57] VITALS: BP 161/79
[2018-03-07] MEDS: METRONIDAZOLE PMX 500MG/100ML 100 ML IV SCH ×4 (00:04→23:49)
[2018-03-07] MEDS: KETOROLAC 30 MG/1 ML IV PRN (00:04)
[2018-03-07 00:30] VITALS: BP 145/77
[2018-03-07] MEDS: LORazepam 2 MG/ML, 1ML IVPush PRN ×6 (01:00→23:49)
[2018-03-07] MEDS: OXYcodone IR 5MG TABLET PO PRN ×3 (03:00→19:35)
[2018-03-07 05:21] LABS: ANION GAP 7 mmol/L (5-15); CALCIUM 8.1 mg/dL (8.5-10.1); CHLORIDE 107 mmol/L (98-107); CREATININE 1.03 mg/dL (0.7-1.3)
[2018-03-07 05:34] LABS: MEAN CORPUSCULAR HEMOGLOBIN 29.2 pg (27.5-34.5); MEAN CORPUSCULAR HGB CONC 32.6 g/dL (33.2-36.2); MEAN CORPUSCULAR VOLUME 89.6 fL (81-97); MEAN PLATELET VOLUME 9.7 fL (7.4-10.4); PLATELET COUNT 345 x10^3/uL (130-400); RED BLOOD COUNT 4.92 x10^6/uL (4.38-5.82); RED CELL DISTRIBUTION WIDTH 15.7 % (9.4-14.8)
[2018-03-07 05:56] LABS: MD YES
[2018-03-07 05:57] LABS: EOS#(MANUAL) 1.57 x10^3/uL (0.0-0.4); EOS% (MANUAL) 5 % (1-7); LYMPH#(MANUAL) 5.34 x10^3/uL (1-3.4); LYMPHS% (MANUAL) 17 % (22-44); MONOS#(MANUAL) 1.88 x10^3/uL (0.3-2.7); MONOS% (MANUAL) 6 % (2-9); SEG#(MANUAL) 22.61 x10^3/uL (1.8-6.8); SEGS% (MANUAL) 72 % (42-75)
[2018-03-07 05:59] LABS: <PLATELET ESTIMATE> ADEQUATE; ANISOCYTOSIS 1+; LARGE PLATELETS 1+; POLYCHROMASIA 1+
[2018-03-07 07:59] VITALS: BP 176/88
[2018-03-07] MEDS: IMATINIB 100 MG TABLET PO SCH (10:39)
[2018-03-07] MEDS: CEFTRIAXONE 1,000 MG in SODIUM CHLORIDE 0.9% 50 ML IV SCH (10:39)
[2018-03-07] MEDS: ASPIRIN 81 MG TABLET EC PO SCH (10:40)
[2018-03-07] MEDS: metFORMIN XR 500 MG TAB.ER.24H PO SCH ×2 (10:40→20:47)
[2018-03-07] MEDS: DOCUSATE 100 MG CAPSULE PO SCH ×2 (10:40→20:48)
[2018-03-07 12:45] VITALS: BP 158/79
[2018-03-07] MEDS: ENOXAPARIN 40 MG/0.4 ML SQ SCH (16:21)
[2018-03-07] MEDS ORDERED: DEXTROSE 70% IV SCH (17:00)
[2018-03-07] MEDS ORDERED: SMOF TPN IV SCH (17:00)
[2018-03-07] MEDS ORDERED: [UNRECOGNIZED DRUG - OTHER] IV SCH (17:00)
[2018-03-07] MEDS ORDERED: FAT EMUL IV SCH (17:00)
[2018-03-07] MEDS ORDERED: AMINO ACID 10% IV SCH (17:00)
[2018-03-07 19:54] VITALS: BP 151/72
[2018-03-08 01:19] VITALS: BP 143/68
[2018-03-08] MEDS: OXYcodone IR 5MG TABLET PO PRN ×2 (01:28→08:53)
[2018-03-08] MEDS: LORazepam 2 MG/ML, 1ML IVPush PRN ×2 (03:15→11:16)
[2018-03-08 07:34] LABS: MEAN CORPUSCULAR HEMOGLOBIN 28.9 pg (27.5-34.5); MEAN CORPUSCULAR HGB CONC 32.8 g/dL (33.2-36.2); MEAN CORPUSCULAR VOLUME 88.2 fL (81-97); MEAN PLATELET VOLUME 9.3 fL (7.4-10.4); PLATELET COUNT 370 x10^3/uL (130-400); RED BLOOD COUNT 5.46 x10^6/uL (4.38-5.82); RED CELL DISTRIBUTION WIDTH 15.6 % (9.4-14.8)
[2018-03-08 07:39] LABS: ANION GAP 8 mmol/L (5-15); CALCIUM 8.5 mg/dL (8.5-10.1); CHLORIDE 106 mmol/L (98-107); CREATININE 0.94 mg/dL (0.7-1.3)
[2018-03-08] MEDS ORDERED: METR500T PO (07:59)
[2018-03-08] MEDS ORDERED: CEFD300C37 PO (07:59)
[2018-03-08 08:09] VITALS: BP 171/91
[2018-03-08] MEDS: DOCUSATE 100 MG CAPSULE PO SCH (08:36)
[2018-03-08] MEDS: METRONIDAZOLE PMX 500MG/100ML 100 ML IV SCH (08:37)
[2018-03-08] MEDS: CEFTRIAXONE 1,000 MG in SODIUM CHLORIDE 0.9% 50 ML IV SCH (08:37)
[2018-03-08] MEDS: ASPIRIN 81 MG TABLET EC PO SCH (08:38)
[2018-03-08] MEDS: metFORMIN XR 500 MG TAB.ER.24H PO SCH (08:38)
[2018-03-08] MEDS: IMATINIB 100 MG TABLET PO SCH (08:43)
[2018-03-08 10:53] LABS: MD YES
[2018-03-08 10:57] LABS: LYMPH#(MANUAL) 6.07 x10^3/uL (1-3.4); LYMPHS% (MANUAL) 23 % (22-44); MONOS% (MANUAL) 11 % (2-9); SEGS% (MANUAL) 51 % (42-75)
[2018-03-08 10:58] LABS: BASOS#(MANUAL) 2.38 x10^3/uL (0-0.1); BASOS% (MANUAL) 9 % (0-1); EOS#(MANUAL) 1.58 x10^3/uL (0.0-0.4); EOS% (MANUAL) 6 % (1-7)
[2018-03-08 10:59] LABS: <PLATELET ESTIMATE> ADEQUATE; <PLT MORPHOLOGY> NORMAL PLT MORPH; ANISOCYTOSIS 1+; GIANT PLATELETS 1+; LARGE PLATELETS 1+
== END 2018-03-08 13:12 | disposition home or self-care (01) | DRG 177 ==
LOC: ED 17:10 → EDIP 17:11 → ED 18:06 → 3NE 18:48 → 3NW 03-03 07:15 → DCLOUNGE 03-08 13:00
PROVIDERS: ADMIT Internal Medicine; ATTEND Internal Medicine
PROC: 0T9B70Z Drainage of Bladder with Drainage Device, Via Natural or Artificial Opening (ICD-10-PCS; principal; 2018-03-02)
DX: J69.0 Pneumonitis due to inhalation of food and vomit (principal); G93.40 Encephalopathy, unspecified; N17.9 Acute kidney failure, unspecified; C91.90 Lymphoid leukemia, unspecified not having achieved remission; T79.6XXA Traumatic ischemia of muscle, initial encounter; E11.65 Type 2 diabetes mellitus with hyperglycemia; E78.5 Hyperlipidemia, unspecified; E86.0 Dehydration; F10.229 Alcohol dependence with intoxication, unspecified; G89.29 Other chronic pain; M54.5 Low back pain; I11.0 Hypertensive heart disease with heart failure; I25.10 Atherosclerotic heart disease of native coronary artery without angina pectoris; I48.91 Unspecified atrial fibrillation; I50.9 Heart failure, unspecified; M48.061 Spinal stenosis, lumbar region without neurogenic claudication; R13.10 Dysphagia, unspecified; W18.30XA Fall on same level, unspecified, initial encounter; Y93.89 Activity, other specified; Y92.89 Other specified places as the place of occurrence of the external cause; Y99.8 Other external cause status; Z79.84 Long term (current) use of oral hypoglycemic drugs; Z83.3 Family history of diabetes mellitus; Z85.46 Personal history of malignant neoplasm of prostate; Z85.51 Personal history of malignant neoplasm of bladder; Z86.711 Personal history of pulmonary embolism; Z87.891 Personal history of nicotine dependence; Z90.81 Acquired absence of spleen; Z95.1 Presence of aortocoronary bypass graft; Z90.49 Acquired absence of other specified parts of digestive tract
CPT/HCPCS: 36415; 72110; 74230; J3475; 70450; 70551; 71045; 80048; 80053; 80307; 81001; 82550; 82962; 83605; 83735; 84100; 84134; 84478; 85025; 85610; 85730; 87040; 93005; G0378; J0610; J0696; J1644; J1650; J1885; J2405; J3480; J1720; J1815; J2060; J2270; J3420; J7030; J7040

== ENCOUNTER → 2019-07-19 | Outpatient (CLI) | payer OTHER, MEDICARE ==
[~2019-07-19] MED LIST changes: +AZIT500T10 PO; -AZIT500T5 PO; -BISA10SU2 PR; +BISA10SU4 PR; -EZET10TA18 PO; +EZET10TA70 PO; +HYDR12.517 PO; -HYDR12.53 PO; +METF500T12 PO; -METF500T9 PO; +METR500T PO; +OXYC10TA6 PO; +REGADENOSON 0.4 MG/5 ML SYRINGE ONE
== END | disposition home or self-care (01) ==
LOC: CFH 07:45
PROVIDERS: ATTEND Internal Medicine Cardiovascular Disease
DX: I45.10 Unspecified right bundle-branch block (principal); R55 Syncope and collapse; I25.10 Atherosclerotic heart disease of native coronary artery without angina pectoris
CPT/HCPCS: 78452; 93017; 93306; A9502; J2785